=== PATIENT | female | born 1995 | race Caucasian/White ===

== ENCOUNTER → 2020-04-09 | Outpatient (CLI) | payer OTHER ==
[2020-04-09 15:05] LABS: Campylobacter Sp Not Detected (NOT DETECT)
[2020-04-09 15:06] LABS: Adenovirus F 40/41 Not Detected (NOT DETECT); Astrovirus Not Detected (NOT DETECT); Cryptosporidium Not Detected (NOT DETECT); Cyclospora Cayetanensis Not Detected (NOT DETECT); E. Coli O157 Not Detected (NOT DETECT); Entamoeba Histolytica Not Detected (NOT DETECT); Enteroaggregative E. coli-EAEC Not Detected (NOT DETECT); Enteropathogenic E. coli-EPEC Not Detected (NOT DETECT); Enterotoxigenic E. coli-ETEC Not Detected (NOT DETECT); Giardia Lamblia Not Detected (NOT DETECT); Norovirus GI/GII Not Detected (NOT DETECT); Plesiomonas Shigelloides Not Detected (NOT DETECT); Rotavirus A Not Detected (NOT DETECT); Salmonella Sp Not Detected (NOT DETECT); Sapovirus Not Detected (NOT DETECT); Shiga Toxin-prod E. coli-STEC Not Detected (NOT DETECT); Shigella/Enteroin E. coli-EIEC Not Detected (NOT DETECT); Vibrio Cholerae Not Detected (NOT DETECT); Vibrio Sp Not Detected (NOT DETECT); Yersinia Enterocolitica Not Detected (NOT DETECT)
== END | disposition home or self-care (01) ==
LOC: LAB SHORT 12:16 → LAB 12:16
PROVIDERS: Physician Assistant
DX: R19.7 Diarrhea, unspecified (principal)
CPT/HCPCS: 0097U

== ENCOUNTER 2020-10-17 17:18 | Emergency (ER) | payer OTHER ==
[~2020-10-17] VITALS: Ht 167.6 cm; Wt 54.4 kg
[2020-10-17] MEDS ORDERED: TRIDERM28.4 GM TOP (17:55)
== END 2020-10-17 18:15 | disposition home or self-care (01) ==
LOC: ER 17:18
DX: L23.7 Allergic contact dermatitis due to plants, except food (principal)
CPT/HCPCS: 81000; 81025; 96372; 99282; A9270; J3301

== ENCOUNTER → 2023-02-12 | Outpatient (CLI) | payer BC ==
[~2023-02-12] MED LIST: TRIDERM28.4 GM TOP
== END | disposition home or self-care (01) ==
LOC: LAB SHORT 12:39 → LAB 12:39
PROVIDERS: Family Medicine
DX: Z12.4 Encounter for screening for malignant neoplasm of cervix (principal)
CPT/HCPCS: G0145

== ENCOUNTER → 2023-07-16 | Outpatient (CLI) | payer BC | END | disposition home or self-care (01) | LOC: LAB 12:14 → LAB SHORT 12:14 | DX: N84.1 Polyp of cervix uteri (principal) | CPT/HCPCS: 88305 ==

== ENCOUNTER → 2023-07-16 | Outpatient (CLI) | payer BC ==
[2023-07-17 16:03] LABS: Candida species (DNA Probe) Negative (NEGATIVE); G. vaginalis (DNA Probe) Negative (NEGATIVE); T. vaginalis (DNA Probe) Negative (NEGATIVE)
== END | disposition home or self-care (01) ==
LOC: LAB 10:00 → LAB SHORT 10:00
PROVIDERS: Family Medicine
DX: N89.8 Other specified noninflammatory disorders of vagina (principal)
CPT/HCPCS: 87480; 87510; 87660